=== PATIENT | female | born 1965 | race African-American/Black ===

== ENCOUNTER 2018-07-17 13:48 | Emergency (ER) | payer OTHER, MEDICAID ==
[~2018-07-17] VITALS: Ht 157.5 cm; Wt 95.0 kg
[2018-07-17 14:19] VITALS: BP 167/105
== END 2018-07-17 16:34 | disposition home or self-care (01) ==
LOC: ER 13:48
DX: L03.114 Cellulitis of left upper limb (principal); I10 Essential (primary) hypertension; F17.200 Nicotine dependence, unspecified, uncomplicated; E66.9 Obesity, unspecified; Z68.38 Body mass index [BMI] 38.0-38.9, adult; Z98.890 Other specified postprocedural states
CPT/HCPCS: 99283

== ENCOUNTER 2019-06-08 10:53 | Emergency (ER) | payer MEDICAID, OTHER ==
[~2019-06-08] VITALS: Ht 167.6 cm; Wt 75.0 kg
[2019-06-08 11:05] VITALS: BP 175/89
== END 2019-06-08 12:43 | disposition home or self-care (01) ==
LOC: ER 11:00
DX: M54.5 Low back pain (principal); G89.29 Other chronic pain; I10 Essential (primary) hypertension; Z98.890 Other specified postprocedural states
CPT/HCPCS: 99282; 99283

== ENCOUNTER 2019-07-31 10:32 | Emergency (ER) | payer MEDICAID ==
[~2019-07-31] VITALS: Ht 167.6 cm; Wt 98.0 kg
[2019-07-31] MEDS ORDERED: HYDROCODONE/ACETAMINOPHEN 5/325MG TABLET PO ONE (11:30)
[2019-07-31] MEDS ORDERED: CLONIDINE 0.1MG TABLET PO ONE (11:30)
[2019-07-31 11:43] VITALS: BP 197/103
[2019-07-31] MEDS ORDERED: ONDANSETRON 4MG ODT PO ONE (11:45)
[2019-07-31 12:03] LABS: CLARITY URINE CLEAR (CLEAR); COLOR URINE YELLOW (YELLOW); KETONES URINE NEGATIVE (NEGATIVE); LEUKOCYTE ESTERASE URINE NEGATIVE (NEGATIVE); NITRITE URINE NEGATIVE (NEGATIVE); OCCULT BLOOD URINE NEGATIVE (NEGATIVE); PH URINE 5.5 (4.5-8.0); PROTEIN URINE NEGATIVE (NEGATIVE); SPECIFIC GRAVITY URINE 1.014 (1.005-1.030); UROBILINOGEN URINE 0.2 E.U./dL (0.2-1.0)
[2019-07-31 12:12] LABS: *AMPHETAMINES SCREEN URINE NEGATIVE (NEGATIVE); *BARBITURATES SCREEN URINE NEGATIVE (NEGATIVE); *BENZODIAZEPINES SCREEN URINE NEGATIVE (NEGATIVE); *COCAINE SCREEN URINE NEGATIVE (NEGATIVE)
[2019-07-31 12:13] LABS: CANNABINOID URINE SCREEN NEGATIVE (NEGATIVE); METHADONE URINE SCREEN NEGATIVE (NEGATIVE); OPIATES URINE SCREEN NEGATIVE (NEGATIVE); PHENCYCLIDINE URINE SCREEN NEGATIVE (NEGATIVE)
== END 2019-07-31 14:41 | disposition home or self-care (01) ==
LOC: ER 10:32
DX: G89.29 Other chronic pain (principal); M54.40 Lumbago with sciatica, unspecified side; M54.12 Radiculopathy, cervical region; I10 Essential (primary) hypertension; L02.416 Cutaneous abscess of left lower limb; L02.415 Cutaneous abscess of right lower limb; Z98.890 Other specified postprocedural states
CPT/HCPCS: 72100; 72125; 80305; 81003; 99284; Q0162

== ENCOUNTER 2025-10-25 11:32 | Inpatient (IN) | payer MEDICARE, MEDICAID ==
[~2025-10-25] VITALS: Ht 157.5 cm; Wt 99.8 kg
[2025-10-25 12:18] LABS: BASOPHILS % 0.2 % (0.0-2.0); EOSINOPHILS % 2.1 % (0.0-5.0); HEMATOCRIT. 38.3 % (36.0-48.0); HEMOGLOBIN. 12.6 g/dL (12.0-16.0); LYMPHOCYTES % 19.2 % (20.0-50.0); MEAN PLATELET VOLUME 7.4 fl (7.4-10.4); MONOCYTES % 5.3 % (2.0-8.0); NEUTROPHILS % 73.2 % (40.0-76.0); PLATELET 431 x1000/uL (130-400); RED BLOOD CELL COUNT 4.47 mill/uL (4.2-5.4); RED CELL DISTRIBUTION WIDTH 14.0 % (11.6-14.6)
[2025-10-25 12:36] LABS: CREATININE 1.0 mg/dL (0.6-1.0); PROTEIN TOTAL 7.9 g/dL (6.0-8.3); UREA NITROGEN BLOOD 10 mg/dL (9-23)
[2025-10-25 12:37] LABS: ASPARTATE AMINOTRANSFERASE 18 IU/L (<34); BILIRUBIN DIRECT 0.2 mg/dL (<=3.0); BILIRUBIN TOTAL 0.6 mg/dL (0.1-1.0)
[2025-10-25 13:14] LABS: CLARITY URINE CLEAR (CLEAR); COLOR URINE YELLOW (YELLOW); GLUCOSE URINE NEGATIVE (NEGATIVE); KETONES URINE NEGATIVE (NEGATIVE); LEUKOCYTE ESTERASE URINE NEGATIVE (NEGATIVE); NITRITE URINE NEGATIVE (NEGATIVE); OCCULT BLOOD URINE NEGATIVE (NEGATIVE); PH URINE 5.5 (4.5-8.0); PROTEIN URINE NEGATIVE (NEGATIVE); SPECIFIC GRAVITY URINE 1.010 (1.005-1.030); UROBILINOGEN URINE 0.2 E.U./dL (0.2-1.0)
[2025-10-25] MEDS: SODIUM CHLORIDE 0.9% 1,000 ML IV ONE (13:20)
[2025-10-25] MEDS: KETOROLAC 15MG/ML VIAL IV ONE (13:20)
[2025-10-25] MEDS: ACETAMINOPHEN 500MG TABLET PO ONE (13:20)
[2025-10-25] MEDS: ONDANSETRON HCL 4MG/2ML INJ IV ONE (13:20)
[2025-10-25] MEDS: HYDRALAZINE 20MG/ML VIAL IV ONE (16:24)
[2025-10-25 17:00] VITALS: BP 156/86; PULSE 92; RESP 16; TEMP 36.6; O2SAT 98
[2025-10-25] MEDS ORDERED: IPRATROPIUM/ALBUTEROL 0.5-3(2.5)MG/3ML NEB HHN PRN (17:30)
[2025-10-25] MEDS ORDERED: ONDANSETRON HCL 4MG/2ML INJ IV PRN (17:30)
[2025-10-25] MEDS ORDERED: HYDROCODONE/ACETAMINOPHEN 5/325MG TABLET PO PRN (17:30)
[2025-10-25] MEDS ORDERED: ACETAMINOPHEN 325MG TABLET PO PRN (17:30)
[2025-10-25] MEDS ORDERED: DOCUSATE SODIUM 100MG CAPSULE PO PRN (17:30)
[2025-10-25 18:00] VITALS: BP 156/86; PULSE 92; RESP 18; TEMP 36.6404
[2025-10-25] MEDS ORDERED: LISI10TA26 PO (18:39)
[2025-10-25] MEDS ORDERED: HYDR50TA40 MT (18:41)
[2025-10-25 20:00] VITALS: BP 141/81; PULSE 98; RESP 17; TEMP 36.4; O2SAT 94
[2025-10-25 23:59] LABS: *AMPHETAMINES SCREEN URINE NEGATIVE (NEGATIVE)
[2025-10-26] VITALS: BP 137/63; PULSE 83; RESP 17; TEMP 36.3; O2SAT 98
[2025-10-26] LABS: *BARBITURATES SCREEN URINE NEGATIVE (NEGATIVE); *BENZODIAZEPINES SCREEN URINE NEGATIVE (NEGATIVE); *COCAINE SCREEN URINE NEGATIVE (NEGATIVE); CANNABINOID URINE SCREEN NEGATIVE (NEGATIVE); ECSTASY MDMA SCREEN URINE NEGATIVE (NEGATIVE); METHADONE URINE SCREEN NEGATIVE (NEGATIVE); OPIATES URINE SCREEN PRESUMPTIVE POSITIVE (NEGATIVE); PHENCYCLIDINE URINE SCREEN NEGATIVE (NEGATIVE)
[2025-10-26 04:00] VITALS: BP 131/73; PULSE 79; RESP 18; TEMP 36.5; O2SAT 94
[2025-10-26 07:59] LABS: CREATININE 1.0 mg/dL (0.6-1.0); UREA NITROGEN BLOOD 13 mg/dL (9-23)
[2025-10-26 08:00] VITALS: BP 148/83; PULSE 73; RESP 15; TEMP 36.4; O2SAT 96
[2025-10-26 08:03] LABS: BASOPHILS % 1.0 % (0.0-2.0); EOSINOPHILS % 5.0 % (0.0-5.0); HEMATOCRIT. 34.8 % (36.0-48.0); HEMOGLOBIN. 11.5 g/dL (12.0-16.0); LYMPHOCYTES % 27.8 % (20.0-50.0); MEAN PLATELET VOLUME 8.2 fl (7.4-10.4); MONOCYTES % 7.7 % (2.0-8.0); NEUTROPHILS % 58.5 % (40.0-76.0); PLATELET 359 x1000/uL (130-400); RED BLOOD CELL COUNT 4.12 mill/uL (4.2-5.4); RED CELL DISTRIBUTION WIDTH 14.1 % (11.6-14.6)
[2025-10-26] MEDS: ENOXAPARIN 40MG/0.4ML SYR SUBCUT SCH (11:30)
[2025-10-26 12:00] VITALS: BP 163/97; PULSE 71; RESP 15; TEMP 36.4; O2SAT 100
[2025-10-26] MEDS: AMLODIPINE 5MG TABLET PO SCH (12:30)
[2025-10-26] MEDS: CLONIDINE 0.1MG TABLET PO PRN (12:30)
[2025-10-26] MEDS: ACETAMINOPHEN 325MG TABLET PO PRN (12:31)
[2025-10-26 16:00] VITALS: BP 157/93; PULSE 72; RESP 16; TEMP 36.4; O2SAT 100
[2025-10-26 20:00] VITALS: BP 134/68; PULSE 66; RESP 18; TEMP 36.7; O2SAT 97
[2025-10-27] VITALS: BP 139/71; PULSE 65; RESP 18; TEMP 36.8; O2SAT 100
[2025-10-27 04:00] VITALS: BP 161/85; PULSE 64; RESP 17; TEMP 37.1; O2SAT 98
[2025-10-27 04:23] VITALS: BP 147/81
[2025-10-27 08:00] VITALS: BP 164/94; PULSE 89; RESP 16; TEMP 36.2; O2SAT 94
[2025-10-27] MEDS ORDERED: AMLO5TAB88 PO (09:08)
[2025-10-27 10:54] VITALS: BP 130/70; PULSE 80; RESP 17; TEMP 97.5
== END 2025-10-27 11:42 | disposition home or self-care (01) | DRG 305 ==
LOC: ER 11:32 → 5WST 15:26 → EDBEDREQ 15:28 → EDBEDREQSVC 15:28 → EDBEDREQTM 15:28
PROVIDERS: ADMIT Internal Medicine; ATTEND Internal Medicine
DX: I16.1 Hypertensive emergency (principal); D25.9 Leiomyoma of uterus, unspecified; K76.0 Fatty (change of) liver, not elsewhere classified; I10 Essential (primary) hypertension; M54.50 Low back pain, unspecified; K80.20 Calculus of gallbladder without cholecystitis without obstruction; N95.9 Unspecified menopausal and perimenopausal disorder; Z91.148 Patient's other noncompliance with medication regimen for other reason; Z79.899 Other long term (current) drug therapy
CPT/HCPCS: 36415; 74176; 76770; 80048; 80076; 80305; 81003; 85025; 93005; 99285; J0360; J1885; J2405; J7030